=== PATIENT | female | born 1985 | race African-American/Black ===

== ENCOUNTER 2022-06-11 14:41 | Emergency (ER) | payer OTHER ==
[~2022-06-11] VITALS: Ht 154.9 cm; Wt 54.4 kg
[2022-06-11 14:41] VITALS: TEMP 97.8
[2022-06-11 15:34] LABS: POTASSIUM 3.6 mmol/L (3.6-5.2)
[2022-06-11 15:40] LABS: PLATELET COUNT 293 K/uL (152-353)
[2022-06-11 16:27] VITALS: BP 100/75
== END 2022-06-11 16:30 | disposition home or self-care (01) ==
LOC: ED 14:41
PROVIDERS: Emergency Medicine Emergency Medical Services
DX: F41.8 Other specified anxiety disorders (principal); F45.8 Other somatoform disorders
CPT/HCPCS: 80048; 81025; 85027; 93005; 99283